=== PATIENT | male | born 1995 | race Caucasian/White ===

== ENCOUNTER 2021-12-09 05:10 | Emergency (ER) | payer BC ==
[~2021-12-09] VITALS: Ht 170.2 cm; Wt 113.4 kg
[2021-12-09 05:10] VITALS: BP 148/90
--- NOTE | 2021-12-09 05:10 | NUR ---
TO BED AMBULATORY
--- NOTE | 2021-12-09 05:15 | NUR ---
RECEIVED PT IN BED 4 WITH C/O BLOOD IN HIS URINE STARTED TODAY , WITH LEFT FLANK PAIN
--- NOTE | 2021-12-09 05:29 | NUR ---
TO CT, AMBULATORY
[2021-12-09] MEDS ORDERED: KETOROLAC 30 MG/ML VIAL IVP ONE (05:30)
[2021-12-09] MEDS ORDERED: NACL 0.9% 1,000 ML IV SCH (05:30)
--- NOTE | 2021-12-09 05:37 | NUR ---
RETURNED FROM CT
--- NOTE | 2021-12-09 05:45 | NUR ---
IV ESTABLISHED LABS DRAWN
--- NOTE | 2021-12-09 05:47 | NUR ---
Dr. Reeder examining patient.
[2021-12-09 06:01] LABS: BASOPHILS % (AUTO) 0.6 % (0.0-2.0); EOSINOPHILS # (AUTO) 0.1 K/uL (0-0.4); EOSINOPHILS % (AUTO) 2.1 % (0.0-4.0); HEMATOCRIT 40.7 % (36-52); LYMPHOCYTES # (AUTO) 2.2 K/uL (2.0-11.5); LYMPHOCYTES % (AUTO) 35.3 % (20.5-51.1); MEAN CORPUSCULAR HEMOGLOBIN 30 pg (27-31); MEAN CORPUSCULAR HGB CONC 34 g/dL (33-37); MEAN CORPUSCULAR VOLUME 85.6 fL (80-94); MONOCYTES # (AUTO) 0.4 K/uL (0.8-1.0); MONOCYTES % (AUTO) 6.9 % (1.7-9.3); NEUTROPHILS # (AUTO) 3.4 K/uL (1.8-7.7); NEUTROPHILS % (AUTO) 55.1 % (42.2-75.2); PLATELET COUNT (AUTO) 207 K/uL (140-450); RED BLOOD CELL COUNT(AUTO) 4.75 MIL/uL (4.20-6.10); RED CELL DISTRIBUTION WIDTH 13.8 % (11.6-13.7); WHITE BLOOD COUNT (AUTO) 6.2 K/uL (4.8-10.8)
[2021-12-09 06:11] LABS: APPEARANCE,URINE CLEAR (CLEAR); BILIRUBIN,URINE NEGATIVE (NEGATIVE); BLOOD, URINE 1+ (NEGATIVE); COLOR,URINE YELLOW (YELLOW); LEUKOCYTE ESTERASE ,URINE NEGATIVE (NEGATIVE); NITRITE, URINE NEGATIVE (NEGATIVE); PH,URINE 6.5 (5.0-9.0); UGLUCOSE NEGATIVE (NEGATIVE)
[2021-12-09 06:21] LABS: WBC,URINE 0-5 /HPF (0-5)
[2021-12-09 06:23] LABS: ALBUMIN 3.4 g/dL (3.4-5.0); ANION GAP 12.5 (8-16); CARBON DIOXIDE 25.6 mmol/L (21-32); CREATININE 0.8 mg/dL (0.6-1.3); POTASSIUM 4.1 mmol/L (3.5-5.1)
[2021-12-09] MEDS ORDERED: CEPH-588 PO (08:52)
[2021-12-09] MEDS ORDERED: IBUP-2213 PO (08:52)
[2021-12-09] MEDS ORDERED: TAMS0.4C96 PO (08:53)
[2021-12-09 09:03] VITALS: BP 126/67
== END 2021-12-09 09:04 | disposition home or self-care (01) ==
LOC: MED 05:10
DX: N20.1 Calculus of ureter (principal); N30.01 Acute cystitis with hematuria; Z72.89 Other problems related to lifestyle
CPT/HCPCS: 36415; 74176; 80053; 81001; 83690; 85025; 96361; 96374; 99284; J1885

== ENCOUNTER 2022-01-24 20:10 | Emergency (ER) | payer BC ==
[~2022-01-24] VITALS: Ht 170.2 cm; Wt 112.9 kg
[~2022-01-24 20:10] MED LIST: CEPH-588 PO; IBUP-2213 PO; TAMS0.4C96 PO
[2022-01-24 20:14] VITALS: BP 139/89
--- NOTE | 2022-01-24 20:17 | NUR ---
TO LOBBY A/W BED AMBULATORY
--- NOTE | 2022-01-24 21:02 | NUR ---
PT TAKEN TO BED 11
[2022-01-24] MEDS ORDERED: MORPHINE SULFATE 4 MG/ML SYR IVP ONE (21:25)
[2022-01-24] MEDS ORDERED: ONDANSETRON 4 MG/2 ML VIAL IVP ONE (21:25)
[2022-01-24] MEDS ORDERED: NACL 0.9% 1,000 ML IV ONE (21:25)
--- NOTE | 2022-01-24 21:40 | NUR ---
Joaquina hernandez in [facility] - 01/24/22 at 2140 by SERENA PT TAKEN TO BED 11
--- NOTE | 2022-01-24 21:40 | NUR ---
PT TAKEN TO CT
--- NOTE | 2022-01-24 21:51 | NUR ---
PT RETURN FROM CT
[2022-01-24 21:52] LABS: BASOPHILS % (AUTO) 0.2 % (0.0-2.0); EOSINOPHILS % (AUTO) 0.2 % (0.0-4.0); HEMATOCRIT 46.3 % (36-52); HEMOGLOBIN 16.2 g/dL (12.0-18.0); LYMPHOCYTES # (AUTO) 1.3 K/uL (2.0-11.5); LYMPHOCYTES % (AUTO) 11.4 % (20.5-51.1); MEAN CORPUSCULAR HEMOGLOBIN 30 pg (27-31); MEAN CORPUSCULAR HGB CONC 35 g/dL (33-37); MEAN CORPUSCULAR VOLUME 85.1 fL (80-94); MONOCYTES # (AUTO) 0.8 K/uL (0.8-1.0); MONOCYTES % (AUTO) 7.1 % (1.7-9.3); NEUTROPHILS # (AUTO) 9.2 K/uL (1.8-7.7); NEUTROPHILS % (AUTO) 81.1 % (42.2-75.2); PLATELET COUNT (AUTO) 256 K/uL (140-450); RED BLOOD CELL COUNT(AUTO) 5.43 MIL/uL (4.20-6.10); RED CELL DISTRIBUTION WIDTH 13.2 % (11.6-13.7); WHITE BLOOD COUNT (AUTO) 11.4 K/uL (4.8-10.8)
[2022-01-24 22:18] LABS: ANION GAP 14.4 (8-16); CARBON DIOXIDE 25.4 mmol/L (21-32); POTASSIUM 3.8 mmol/L (3.5-5.1); TOTAL BILIRUBIN 1.4 mg/dL (0.0-1.0)
[2022-01-24 22:50] VITALS: BP 120/67
--- NOTE | 2022-01-24 22:51 | NUR ---
Patient discharged with v/s stable. Written and verbal after care instructions given and explained. Patient verbalized understanding. Ambulatory with steady gait. All questions addressed prior to discharge. Advised to follow up with PMD.
== END 2022-01-24 22:51 | disposition home or self-care (01) ==
LOC: MED 20:10
DX: R10.31 Right lower quadrant pain (principal); R11.2 Nausea with vomiting, unspecified; R19.7 Diarrhea, unspecified; Z79.899 Other long term (current) drug therapy; Z87.442 Personal history of urinary calculi
CPT/HCPCS: 36415; 74177; 80053; 81002; 83690; 85025; 96361; 96374; 96375; 99285; J2270; J2405; J7030; Q9967

== ENCOUNTER 2023-11-08 19:09 | Emergency (ER) | payer BC ==
[~2023-11-08] VITALS: Ht 172.7 cm; Wt 113.1 kg
[2023-11-08 19:18] VITALS: BP 142/91; PULSE 89; RESP 18; TEMP 98.9; O2SAT 97
[2023-11-08 19:33] VITALS: O2SAT 97
[2023-11-08] MEDS: DICYCLOMINE 20 MG/2 ML VIAL IM ONE (19:52)
[2023-11-08] MEDS: KETOROLAC 30 MG/ML VIAL IM ONE (19:53)
[2023-11-08 20:00] VITALS: O2SAT 97
[2023-11-08 20:06] LABS: BASOPHILS % (AUTO) 0.4 % (0.0-2.0); EOSINOPHILS # (AUTO) 0.1 K/uL (0-0.4); EOSINOPHILS % (AUTO) 0.8 % (0.0-4.0); HEMATOCRIT 41.1 % (36-52); LYMPHOCYTES # (AUTO) 2.1 K/uL (2.0-11.5); LYMPHOCYTES % (AUTO) 24.2 % (20.5-51.1); MEAN CORPUSCULAR HEMOGLOBIN 29 pg (27-31); MEAN CORPUSCULAR HGB CONC 34 g/dL (33-37); MEAN CORPUSCULAR VOLUME 85.4 fL (80-94); MONOCYTES # (AUTO) 0.8 K/uL (0.8-1.0); MONOCYTES % (AUTO) 9.7 % (1.7-9.3); NEUTROPHILS # (AUTO) 5.7 K/uL (1.8-7.7); NEUTROPHILS % (AUTO) 64.9 % (42.2-75.2); PLATELET COUNT (AUTO) 195 K/uL (140-450); RED BLOOD CELL COUNT(AUTO) 4.81 MIL/uL (4.20-6.10); RED CELL DISTRIBUTION WIDTH 13.7 % (11.6-13.7); WHITE BLOOD COUNT (AUTO) 8.8 K/uL (4.8-10.8)
[2023-11-08 20:18] LABS: ALBUMIN 3.7 g/dL (3.4-5.0); ANION GAP 10.5 (8-16); CALCIUM 8.9 mg/dL (8.5-10.1); CARBON DIOXIDE 29.5 mmol/L (21-32); CREATININE 1.2 mg/dL (0.6-1.3); TOTAL BILIRUBIN 0.9 mg/dL (0.0-1.0); TOTAL PROTEIN, SERUM 7.4 g/dL (6.4-8.2)
[2023-11-08 20:36] LABS: APPEARANCE,URINE CLOUDY (CLEAR); BILIRUBIN,URINE NEGATIVE (NEGATIVE); BLOOD, URINE NEGATIVE (NEGATIVE); COLOR,URINE YELLOW (YELLOW); LEUKOCYTE ESTERASE ,URINE NEGATIVE (NEGATIVE); NITRITE, URINE NEGATIVE (NEGATIVE); PROTEIN,URINE NEGATIVE (NEGATIVE); UGLUCOSE NEGATIVE (NEGATIVE)
[2023-11-08 20:40] LABS: FLU A ANTIGEN negative (NEGATIVE); FLU B ANTIGEN NEGATIVE (NEGATIVE)
[2023-11-08] MEDS ORDERED: ACET500T99 PO (20:53)
[2023-11-08] MEDS ORDERED: BEN10 PO (20:53)
== END 2023-11-08 21:03 | disposition home or self-care (01) ==
LOC: MED 19:09
DX: R10.9 Unspecified abdominal pain (principal); R19.7 Diarrhea, unspecified; Z20.822 Contact with and (suspected) exposure to COVID-19; R51.9 Headache, unspecified; R11.0 Nausea; M79.18 Myalgia, other site; R50.9 Fever, unspecified; Z79.899 Other long term (current) drug therapy
CPT/HCPCS: 36415; 80053; 81003; 85025; 87426; 87804; 96372; 99284; J0500; J1885